=== PATIENT | male | born 1960 | race Caucasian/White ===

== ENCOUNTER 2019-04-13 15:44 | Inpatient (IN) ==
[2019-04-13] MEDS ORDERED: PROMETHAZINE HCL 12.5 MG in SODIUM CHLORIDE 0.9% 50 ML IV PRN (16:08)
[2019-04-13] MEDS ORDERED: ACETAMINOPHEN 325 MG TAB PO PRN (16:08)
[2019-04-13] MEDS ORDERED: HYDROmorphone INJ 1 MG/ML SYRINGE IV STA (16:08)
[2019-04-13] MEDS ORDERED: ONDANSETRON INJ 2 MG/ML 2 ML VIAL IV PRN (16:08)
[2019-04-13 18:15] LABS: Basophils # (auto) 0.04 K/uL (0-0.2); Basophils % (auto) 0.3 %; Eosinophils # (auto) 0.08 K/uL (0-0.5); Eosinophils % (auto) 0.6 %; Hematocrit (blood only) 45.8 % (42-52); Hemoglobin 16.1 g/dL (14.0-18.0); Immature Granulocytes # (auto) 0.42 K/uL (0.00-0.02); Immature Granulocytes % (auto) 3.2 %; Lymphocytes # (auto) 2.98 K/uL (1.2-3.4); Lymphocytes % (auto) 22.9 %; Mean Corpuscular Hgb Conc 35.2 g/dL (32-36); Mean Corpuscular Volume 92.7 fL (80-100); Mean Platelet Volume 9.8 fL (7.4-10.4); Monocytes % (auto) 6.9 %; Neutrophils % (auto) 66.1 %; Platelet Count 347 K/uL (130-400); RDW Coefficient of Variation 14.7 % (11.5-14.5); RDW Standard Deviation 49.9 fL (36.4-46.3); Red Blood Count 4.94 M/uL (4.7-6.1); White Blood Count 13.02 K/uL (4.8-10.8)
[2019-04-13] MEDS ORDERED: HYDROmorphone INJ 1 MG/ML SYRINGE ONE (18:24)
[2019-04-13 18:31] LABS: Alanine Aminotransferase 24 U/L (12-78); Albumin Level 3.4 gm/dl (3.4-5.0); Aspartate Aminotransferase 14 U/L (15-37); BUN Creatinine Ratio 13.6 (10-20); Blood Urea Nitrogen 12 mg/dl (7-18); Calcium 9.2 mg/dl (8.5-10.1); Carbon Dioxide 24 mmol/L (21-32); Chloride 111 mmol/L (98-107); Est GFR (African American) 109.7; Est GFR (Non-African American) 94.7; Glucose 101 mg/dl (70-99); Potassium 3.9 mmol/L (3.5-5.1); Sodium 142 mmol/L (136-145)
[2019-04-13 18:34] LABS: Alkaline Phosphatase 88 U/L (45-117); Bilirubin,Total 0.5 mg/dl (0.2-1); Globulin 3.3 gm/dl (2.5-4.0); Total Protein 6.7 gm/dl (6.4-8.2)
[2019-04-13] MEDS: LACTATED RINGER'S 1,000 ML IV SCH (18:57)
[2019-04-13] MEDS: OXYCODONE/ACETAMINOPHEN 5mg/325mg TAB PO PRN (19:52)
[2019-04-13] MEDS: QUETIAPINE FUMARATE 25 MG TABLET PO SCH (22:02)
[2019-04-13] MEDS: HYDROmorphone INJ 1 MG/ML SYRINGE IV PRN (23:35)
[2019-04-14] MEDS: QUETIAPINE FUMARATE 25 MG TABLET PO SCH (02:06)
[2019-04-14] MEDS: OXYCODONE/ACETAMINOPHEN 5mg/325mg TAB PO PRN (02:06)
--- NOTE | 2019-04-14 03:18 | Anesthesiology Consultation ---
Date of Service April 14, 2019 Assessment & Plan (1) Encounter for pre-operative examination: Chart Review Chart Review: Pending: Refer to Additional Notes / Consult section (Pending ecg and check of PT/INR) History Height/Weight Height: 5 ft 10 in Weight: 96.2 kg Allergies Allergy/AdvReac Type Severity Reaction Status Date / Time No Known Allergies Allergy Verified 04/12/14 11:31 Medications Home Medications Medication Instructions Recorded Confirmed Last Taken QUETIAPINE FUMARATE (SEROQUEL) 25 mg PO HS #0 11/19/11 04/13/19 04/12/19 21:30 25 mg Morphine Sulfate (Ms Contin) 30 mg PO Q12 #0 tab 04/27/14 04/13/19 Unknown Active Medications Generic Name Dose Route Start Last Admin Trade Name Freq PRN Reason Stop Dose Admin Hydromorphone HCl 1 mg 04/13/19 18:51 04/13/19 23:35 Dilaudid IV 04/27/19 18:50 1 mg Q2HWA PRN Administration Pain Lactated Ringer's 1,000 mls @ 75 mls/hr 04/13/19 16:15 04/13/19 18:57 Lr IV 05/13/19 16:14 75 mls/hr .[id number] DEMI Administration Miscellaneous 1 ea 04/13/19 21:00 04/13/19 20:02 Remove Nicoderm Patch N/A 05/13/19 20:59 Not Given HS DEMI Oxycodone/Acetaminophen 1 - 2 tab 04/13/19 16:08 04/14/19 02:06 Percocet 5mg/325mg PO 04/27/19 16:07 2 tab Q4H PRN Administration moderate to severe pain Quetiapine Fumarate 25 mg 04/13/19 21:00 04/14/19 02:06 Seroquel PO 05/13/19 20:59 25 mg HS DEMI Administration NPO Date Last Intake of Fluids: 04/14/19 Time Last Intake of Fluids: 02:06 Last Intake of Fluids Comment: allowed sips with medications. Date Last Intake of Solids: 04/13/19 Time Last Intake of Solids: 23:00 Last Intake of Solids Comment: prior to shift. Past Medical History Medical History Anxiety Cirrhosis of liver Fusion of spine Hepatitis C History of ETOH abuse Years ago Past Surgical History Surgical History History of lumbar fusion Multiple Social History Smoking Status: Current every day smoker tobacco type: cigarettes Smoking cigarettes per day: 40 Hx Alcohol Use: No Hx Substance Use: Yes substance use type: crack/cocaine, heroin and painkillers Last Used Substance Other:: 14 years ago Physical Exam Vital Signs Last Vital Signs Temp 36.6 C 04/13/19 23:35 Pulse 89 04/13/19 23:35 Resp 18 04/13/19 23:35 BP 156/92 H 04/13/19 23:35 Pulse Ox 98 04/13/19 23:35 Testing Laboratory Results 04/13/19 18:04 04/13/19 18:04
[2019-04-14] MEDS: HYDROmorphone INJ 1 MG/ML SYRINGE IV PRN ×3 (05:36→10:41)
[2019-04-14] MEDS ORDERED: CEFAZOLIN 2000MG 2,000 MG/15 ML SYR IV SCH (06:00)
--- NOTE | 2019-04-14 07:47 | History & Physical Report ---
Date of Service April 14, 2019 Assessment & Plan (1) Spinal stenosis, lumbar region with neurogenic claudication: Patient is being admitted to the hospital for adequate pain control for his severe discomfort. We will no longer trial epidural injections as they feel that providing long-term relief. We are going to move forward with a lumbar decompression L2-3 and removal instrumentation L3-S1. Risk benefits pros cons and alternatives were outlined in detail. Present on Admission?: Yes History of Present Illness Chief Complaint: Back and severe right leg pain Primary Care Provider: Marcelino Almaraz This is a 50-year-old male well-known to me that presents with severe back and right leg pain over the past several weeks. Is been unremitting in nature. It caused significant weakness to his quadricep and inability to ambulate without a cane. We did have him undergo a diagnostic therapeutic L2 III nerve root block. This lasted approximately 2 days before the pain returned to its original severity. He has minimal pain to the left lower extremity. He denies any loss of bowel bladder function. He is tried various forms of oral pain medication without any success. Allergies Allergy/AdvReac Type Severity Reaction Status Date / Time No Known Allergies Allergy Verified 04/12/14 11:31 Home Medications Home Medications Medication Instructions Recorded Confirmed Type QUETIAPINE FUMARATE (SEROQUEL) 25 mg PO HS #0 11/19/11 04/13/19 History Morphine Sulfate (Ms Contin) 30 mg PO Q12 #0 tab 04/27/14 04/13/19 History Past Med/Surg History Medical History Anxiety Cirrhosis of liver Fusion of spine Hepatitis C History of ETOH abuse Years ago Surgical History History of lumbar fusion Multiple Social History Preferred Language: [place] Islander Communication Ability: Effective 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 Prefers to lay in a lateral decubitus position to relieve his pain. Standing walking reproduces significant pain in an L2-3 pattern. He does exhibit weakness to testing the right quadricep. Sensory deficits to the right anterior thigh compared to left. Results & Data Vital Signs (Past 12 Hours) Vital Signs Temp Pulse Resp BP Pulse Ox 04/13/19 23:35 36.6 C 89 18 156/92 H 98 Code Status & VTE Plan VTE Prophylaxis Plan VTE Prophylaxis will be ordered: Yes
[2019-04-14] MEDS: NICOTINE 21 MG/24 HR TDSY TD SCH (08:22)
[2019-04-14] MEDS: LACTATED RINGER'S 1,000 ML IV SCH ×2 (08:23→19:25)
--- NOTE | 2019-04-14 13:24 | History & Physical Bridge Note ---
Date of Service April 14, 2019 History & Physical Bridge Note I have examined the patient, reviewed the History & Physical and in the interval since the performance of the History & Physical I have noted the following changes of clinical significance: no changes noted
[2019-04-14] MEDS ORDERED: BUPIVACAINE/EPINEPHRINE 0.5% MPF 1:200,000 30 ML VIAL ONE (13:41)
[2019-04-14] MEDS ORDERED: BACITRACIN INJ 50,000 UNIT VIAL ONE (13:41)
[2019-04-14] MEDS ORDERED: ATROPINE SULFATE 0.1 MG/ML 10ML SYR IV PRN (13:47)
[2019-04-14] MEDS ORDERED: ONDANSETRON INJ 2 MG/ML 2 ML VIAL IV PRN ×2 (13:47→17:43)
[2019-04-14] MEDS ORDERED: ePHEDrine sulfate 50 MG/ML AMP IV PRN (13:47)
[2019-04-14] MEDS ORDERED: FLOSEAL HEMOSTATIC MATRIX 10ML TOP ONE (14:47)
--- NOTE | 2019-04-14 15:49 | Operative Report ---
Post Operative Report Pre & Post Diagnosis Operation Date: 04/14/19 13:05 Pre-Op Diagnosis: LUMBAR SPINE STENOSIS W/ NEUROGENIC CLAUDICATION Post-Op Diagnosis: LUMBAR SPINE STENOSIS W/ NEUROGENIC CLAUDICATION Procedure Operation Date: 04/14/19 13:05 Actual Procedures #1 removal of posterior segmental instrumentation L3-S1. #2 expiration of fusion L3-S1. #3 lumbar decompression with bilateral medial facetectomies foraminotomies L1-L2 L2-3. Posterior spinal fusion L2-3. #5 placement posterior instrumentation L2-3. #6 interbody fusion L2-3. #7 placement of peek cage 12 x 26 mm at L2-3. #8 placement of local autograft in the posterior lateral gutters per #9 placement infuse collagen sponge bone mass graft in the posterior lateral gutters and ostial amp in the interbody space. Surgeon Galindo Gao DO Pasteurizer Mariposa Glass Estimated Blood Loss 325 Findings Consistent with Post-Op Diagnosis Specimens None Indications This is a 50-year-old male well-known to the presents with severe maculopathy and spinal stenosis. Her failing course of nonoperative care is here for surgical intervention. Description of Procedure Patient was met with identified and informed consent obtained. He was then taken to the operative suite underwent intubation placed in a prone position on the Franklin table on top of the Gabo frame. All bony prominences well-padded eyes inspected to ensure no external pressure placed upon the peer at this point the lumbar spine was prepped and draped in a normal sterile fashion. Sharp dissection with the assistance of Bovie cautery was performed down to and exposing the lamina and transverse processes of L2 and the instrumentation at L3-L4-L5 and the sacral ala bilaterally. Then proceed remove the hardware bilaterally exploring the fusion mass noting it to be intact from L3-S1. Then performed a complete laminectomy of L2 partial laminectomy of L1 including bilateral medial facetectomies and foraminotomies addressing severe stenosis. Pedicle screws were then placed in L2 and L3 bilaterally with assistance of fluoroscopy and the probably size ganga placed. By way of a transforaminal approach on the right complete discectomy was performed endplates curetted to subcortical bleeding bone and a 12 x 26 mm peek cage filled with ostium bone graft tapped in position. The rods were then locked in final position bilaterally. The transverse processes of L2 and L3 burred to subcortical bleeding bone. Infuse collagen sponge mass graft local autograft placed in the posterior lateral gutters. 15 round ELI drain inserted. The incision was then closed with 1 Vicryl in the fascia 2-0 Vicryl subcutaneously and 4-0 Monocryl for final skin closure. Steri-Strip sterile dressings placed. Patient awakened taken to PACU stable condition. Please note spinal cord monitoring was utilized that the procedure no changes noted. Lastly Mariposa Glass was present at the entire procedure involved in patient positioning complex portions of the surgery and final skin closure. I attest to the content of the Intraoperative Record and any orders documented therein. Any exceptions are noted below.
--- NOTE | 2019-04-14 16:19 | Anesthesiology Progress Note ---
Date of Service April 14, 2019 Anesthesia Post Procedure Vital Signs Vital Signs: Temp Pulse Pulse Resp BP Pulse Ox 04/14/19 13:13 36.8 C 78 20 128/73 98 04/14/19 07:35 36.2 C L 67 12 111/68 97 04/13/19 23:35 36.6 C 89 18 156/92 H 98 04/13/19 18:30 36.8 C 93 H 18 150/92 H 98 Pain Intensity Back: Pain Intensity: 8 Transfer of Care Handoff Completed per policy Notes Mental Status: alert / awake / arousable Patient Amnestic to Procedure: Yes Nausea / Vomiting: adequately controlled Pain: adequately controlled Airway Patency, RR, SpO2: stable & adequate BP & HR: stable & adequate Hydration State: stable & adequate Anesthetic Complications: no major complications apparent
[2019-04-14] MEDS: fentaNYL citrate 100 MCG/2 ML VIAL IV PRN ×2 (16:24→16:29)
[2019-04-14] MEDS: HYDROmorphone INJ 2 MG/ML SYR/VIAL IV PRN ×3 (16:38→16:53)
[2019-04-14] MEDS ORDERED: MIDAZOLAM HCL 5 MG/ML 1 ML VIAL IV STA (17:04)
[2019-04-14] MEDS ORDERED: NALOXONE HCL 0.4 MG/1 ML VIAL/CARP IV PRN (17:43)
[2019-04-14] MEDS ORDERED: ACETAMINOPHEN 500 MG TAB PO PRN (17:43)
[2019-04-14] MEDS ORDERED: DO NOT ADMINISTER PNEUMOCOCCAL VACCINE PRN (17:43)
[2019-04-14] MEDS ORDERED: FAMOTIDINE 20 MG TAB PO PRN (17:43)
[2019-04-14] MEDS ORDERED: MAGNESIUM HYDROXIDE SUSP 30 ML UDC PO PRN (17:43)
[2019-04-14] MEDS ORDERED: SOD PHOSPHATE/SOD BIPHOSPHATE ENEMA 132 ML BTL PR PRN (17:43)
[2019-04-14] MEDS ORDERED: BISACODYL 10 MG SUPP PR PRN (17:43)
[2019-04-14] MEDS ORDERED: ACETAMINOPHEN 1,000 MG/100 ML VIAL IV PRN (17:43)
[2019-04-14] MEDS ORDERED: ONDANSETRON 4 MG TAB PO PRN (17:43)
[2019-04-14] MEDS ORDERED: PROMETHAZINE HCL 12.5 MG in SODIUM CHLORIDE 0.9% 50 ML IV PRN (17:43)
[2019-04-14] MEDS ORDERED: LORazepam 0.5 MG/1 ML VIAL IV PRN (17:43)
[2019-04-14] MEDS ORDERED: ALUMINUM/MAGNESIUM SUSP 30 ML UDC PO PRN (17:43)
[2019-04-14] MEDS ORDERED: METOCLOPRAMIDE HCL INJ 5 MG/ML 2 ML VIAL IV PRN (17:43)
[2019-04-14] MEDS ORDERED: DO NOT ADMINISTER FLU VACCINE PRN (17:43)
[2019-04-14] MEDS ORDERED: Nursing to Pharmacy Communication PRN (18:38)
[2019-04-14] MEDS: KETOROLAC 30 MG/ML VIAL IV SCH (20:03)
[2019-04-14] MEDS ORDERED: QUETIAPINE FUMARATE 25 MG TABLET PO SCH (21:00)
[2019-04-14] MEDS ORDERED: MORPHINE SULFATE 30 MG PO SCH (21:00)
[2019-04-14] MEDS: DOCUSATE SODIUM/SENNA 50/8.6MG TAB PO SCH (21:29)
[2019-04-14] MEDS: CEFAZOLIN 2000MG 2,000 MG/15 ML SYR IV SCH (21:30)
[2019-04-14] MEDS: OXYCODONE HCL IR 5 MG TAB (IMMEDIATE RELEASE) PO PRN (22:23)
[2019-04-15] MEDS: HYDROmorphone INJ 0.5 MG/0.5 ML SYR IV PRN ×7 (00:23→23:56)
[2019-04-15] MEDS: LACTATED RINGER'S 1,000 ML IV SCH (00:47)
[2019-04-15] MEDS: KETOROLAC 30 MG/ML VIAL IV SCH ×3 (02:14→14:38)
[2019-04-15] MEDS: POLYETHYLENE (MIRALAX) 17 GM PACK PO SCH ×4 (05:09→23:53)
[2019-04-15] MEDS: CEFAZOLIN 2000MG 2,000 MG/15 ML SYR IV SCH (05:09)
[2019-04-15] MEDS: NICOTINE 21 MG/24 HR TDSY TD SCH (07:55)
[2019-04-15 07:57] LABS: Basophils # (auto) 0.01 K/uL (0-0.2); Hematocrit (blood only) 36.7 % (42-52); Hemoglobin 12.3 g/dL (14.0-18.0); Immature Granulocytes # (auto) 0.21 K/uL (0.00-0.02); Lymphocytes % (auto) 6.4 %; Mean Corpuscular Hgb Conc 33.5 g/dL (32-36); Mean Corpuscular Volume 94.6 fL (80-100); Mean Platelet Volume 10.1 fL (7.4-10.4); Monocytes # (auto) 1.16 K/uL (0.11-0.59); Monocytes % (auto) 5.7 %; Neutrophils # (auto) 17.66 K/uL (1.4-6.5); Neutrophils % (auto) 86.9 %; Platelet Count 293 K/uL (130-400); RDW Coefficient of Variation 14.8 % (11.5-14.5); RDW Standard Deviation 50.8 fL (36.4-46.3); Red Blood Count 3.88 M/uL (4.7-6.1); White Blood Count 20.34 K/uL (4.8-10.8)
--- NOTE | 2019-04-15 08:08 | Anesthesiology Progress Note ---
Date of Service April 15, 2019 Anesthesia Post Procedure Vital Signs Vital Signs: Temp Pulse Pulse Resp BP Pulse Ox 04/15/19 07:32 36.7 C 94 H 16 113/61 95 04/15/19 04:05 36.9 C 91 H 16 96/54 L 96 04/14/19 23:30 36.8 C 108 H 18 102/52 L 95 04/14/19 20:47 36.9 C 109 H 17 116/82 96 04/14/19 19:53 37.0 C 120 H 18 111/65 95 04/14/19 18:40 36.4 C L 117 H 18 117/78 93 04/14/19 18:08 36.4 C L 84 18 108/68 97 04/14/19 17:40 36.4 C L 98 H 18 122/78 98 04/14/19 17:15 36.6 C 81 17 121/56 L 94 04/14/19 17:05 36.6 C 77 11 L 129/58 L 98 04/14/19 16:55 36.8 C 74 15 128/64 97 04/14/19 16:45 36.8 C 81 18 112/75 98 04/14/19 16:35 36.8 C 78 9 L 147/48 H 96 04/14/19 16:25 36.8 C 80 11 L 124/89 99 04/14/19 16:15 36.8 C 79 15 140/82 100 04/14/19 16:06 36.8 C 82 10 L 137/73 98 04/14/19 13:13 36.8 C 78 20 128/73 98 Pain Intensity Back: Pain Intensity: 9 Notes Mental Status: alert / awake / arousable and participated in evaluation Patient Amnestic to Procedure: Yes Nausea / Vomiting: adequately controlled Pain: improving with treatment (RN notified of pain and is bringing more medication for pain.) Airway Patency, RR, SpO2: stable & adequate BP & HR: stable & adequate Hydration State: stable & adequate Anesthetic Complications: no major complications apparent
[2019-04-15 08:21] LABS: BUN Creatinine Ratio 19.6 (10-20); Calcium 8.3 mg/dl (8.5-10.1); Creatinine Clr Calc Pharmacy 104.1 ml/min; Est GFR (African American) 108.7; Est GFR (Non-African American) 93.8; Potassium 3.9 mmol/L (3.5-5.1)
--- NOTE | 2019-04-15 08:26 | Orthopedic Progress Note ---
Date of Service April 15, 2019 Assessment & Plan (1) Spinal stenosis, lumbar region with neurogenic claudication: At this time initiate physical therapy monitor his ELI output. Anticipate discharge home this weekend. Present on Admission?: Yes Subjective Patient's back pain is controlled leg symptoms markedly improved. Physical Exam Physical Exam: On exam patient is sitting at the bedside. Is good strength testing. Is much more comfortable. Results & Data Vital Signs (Past 12 Hours) Vital Signs Temp Pulse Resp BP Pulse Ox 04/15/19 07:32 36.7 C 94 H 16 113/61 95 04/15/19 04:05 36.9 C 91 H 16 96/54 L 96 04/14/19 23:30 36.8 C 108 H 18 102/52 L 95 04/14/19 20:47 36.9 C 109 H 17 116/82 96
[2019-04-15] MEDS: QUETIAPINE FUMARATE 25 MG TABLET PO SCH (21:18)
[2019-04-15] MEDS: DOCUSATE SODIUM/SENNA 50/8.6MG TAB PO SCH (21:24)
[2019-04-15] MEDS: OXYCODONE HCL IR 5 MG TAB (IMMEDIATE RELEASE) PO PRN (21:25)
[2019-04-16] MEDS: HYDROmorphone INJ 0.5 MG/0.5 ML SYR IV PRN ×7 (03:05→23:06)
[2019-04-16] MEDS: POLYETHYLENE (MIRALAX) 17 GM PACK PO SCH ×3 (05:53→19:00)
[2019-04-16] MEDS: OXYCODONE HCL IR 5 MG TAB (IMMEDIATE RELEASE) PO PRN (05:58)
[2019-04-16] MEDS: NICOTINE 21 MG/24 HR TDSY TD SCH (08:08)
--- NOTE | 2019-04-16 12:24 | Orthopedic Progress Note ---
Date of Service April 16, 2019 Assessment & Plan (1) Spinal stenosis, lumbar region with neurogenic claudication: This time we will continue physical therapy monitor his ELI output hopefully discharge home this weekend. Present on Admission?: Yes Subjective Patient complaining mostly of back pain. Leg symptoms are markedly improved. Physical Exam Physical Exam: On exam to sit up at the bedside is good strength testing. Results & Data Vital Signs (Past 12 Hours) Vital Signs Temp Pulse Resp BP Pulse Ox 04/16/19 08:03 36.9 C 83 18 102/62 95
[2019-04-16] MEDS: DOCUSATE SODIUM/SENNA 50/8.6MG TAB PO SCH (20:14)
[2019-04-16] MEDS: QUETIAPINE FUMARATE 25 MG TABLET PO SCH (21:51)
[2019-04-17] MEDS: HYDROmorphone INJ 0.5 MG/0.5 ML SYR IV PRN ×6 (02:09→23:37)
[2019-04-17] MEDS: NICOTINE 21 MG/24 HR TDSY TD SCH (07:39)
[2019-04-17] MEDS: LORazepam 0.5 MG TAB PO PRN ×2 (07:39→17:51)
--- NOTE | 2019-04-17 10:14 | Orthopedic Progress Note ---
Date of Service April 17, 2019 Assessment & Plan (1) Spinal stenosis, lumbar region with neurogenic claudication: This time we will maintain the ELI drain today and most likely discharge home tomorrow. Present on Admission?: Yes Subjective Back pain is controlled leg symptoms markedly improved. Physical Exam Physical Exam: Patient is in the chair at the bedside. Is good strength testing. Appears comfortable. Results & Data Vital Signs (Past 12 Hours) Vital Signs Temp Pulse Pulse Resp BP Pulse Ox 04/17/19 08:00 37 C 73 18 108/68 04/16/19 22:58 36.7 C 83 16 105/68 99
[2019-04-17] MEDS: OXYCODONE HCL IR 5 MG TAB (IMMEDIATE RELEASE) PO PRN ×3 (10:15→21:33)
[2019-04-17] MEDS: DOCUSATE SODIUM/SENNA 50/8.6MG TAB PO SCH (21:32)
[2019-04-17] MEDS: QUETIAPINE FUMARATE 25 MG TABLET PO SCH (21:32)
[2019-04-18] MEDS: HYDROmorphone INJ 0.5 MG/0.5 ML SYR IV PRN ×2 (04:33→09:07)
[2019-04-18] MEDS: OXYCODONE HCL IR 5 MG TAB (IMMEDIATE RELEASE) PO PRN ×2 (06:08→10:37)
--- NOTE | 2019-04-18 08:24 | Discharge Summary ---
Date of Service April 18, 2019 Admission HPI Per Admitting Provider This is a 50-year-old male well-known to me that presents with severe back and right leg pain over the past several weeks. Is been unremitting in nature. It caused significant weakness to his quadricep and inability to ambulate without a cane. We did have him undergo a diagnostic therapeutic L2 III nerve root block. This lasted approximately 2 days before the pain returned to its original severity. He has minimal pain to the left lower extremity. He denies any loss of bowel bladder function. He is tried various forms of oral pain medication without any success. Discharge Data Consultations 04/13/19 16:08 Consult Anesthesiology Routine 04/14/19 17:43 Consult Case Management - Discharge Planning Routine Procedures Performed Operation Date: 04/14/19 13:05 Actual Procedures p L2-L3 Decompression and Fusion with Spinal Cord Monitoring, Application of Bone Morphogenetic Protein and Allograft, Insertion of Interbody, (Not Applicable) - Galindo Gao DO s Removed Hardware L3-S1(Not Applicable) - Galindo Gao DO Hospital Course (1) Spinal stenosis, lumbar region with neurogenic claudication: Patient presents with history physical examination and radiographic images consistent with spinal stenosis with adjacent level disease. For this reason is brought to the operating room and had undergone a removal of hardware and adjacent level decompression and continuation fusion. This performed by Dr. Gao under general anesthesia. Left the operating room with a ELI drain and Frye in place and was transferred to PACU in stable condition. He was then transferred to the orthopedic floor. He was seen by physical therapy postop day 1 for ambulation and gait training. He has had some issues with chronic pain and pain control measures but has a postoperative day #5 he was deemed safe for home discharge as his pain is controlled and has had a bowel movement. He was to avoid any full bending at the waist. He should not lift anything heavier than 5 pounds. We will DC his drain and dressing prior to discharge. He is to change dressing once daily until there is no drainage once there is no drainage he may shower. We will see him in the office in 2 weeks or sooner if he develops any fevers increased pain or drainage from the incision.
[2019-04-18] MEDS: NICOTINE 21 MG/24 HR TDSY TD SCH (09:06)
== END 2019-04-18 11:36 | disposition home or self-care (01) | DRG 455 ==
LOC: 3W 17:12
DX: Z86.19 Personal history of other infectious and parasitic diseases; K74.60 Unspecified cirrhosis of liver; Z98.1 Arthrodesis status; F17.210 Nicotine dependence, cigarettes, uncomplicated; M48.062 Spinal stenosis, lumbar region with neurogenic claudication